=== PATIENT | female | born 1980 | race Caucasian/White ===

== ENCOUNTER 2017-03-29 19:34 | Emergency (ER) | payer MEDICAID, OTHER ==
[~2017-03-29] VITALS: Ht 157.5 cm; Wt 66.0 kg
[~2017-03-29 19:34] MED LIST: PREN-88 PO
[2017-03-29] MEDS ORDERED: SODIUM CHLORIDE 0.9% 1,000 ML IV ONE (20:10)
[2017-03-29] MEDS ORDERED: ONDANSETRON HCL 4MG/2ML VIAL IV STA (20:10)
[2017-03-29 20:36] LABS: HEMATOCRIT. 40.2 % (36.0-48.0); HEMOGLOBIN. 13.4 g/dL (12.0-16.0); MEAN CORPUSCULAR HEMOGLOBIN 28.4 pg (28.0-32.0); MEAN CORPUSCULAR VOLUME 84.9 fL (81.0-99.0); MEAN PLATELET VOLUME 7.8 fl (7.4-10.4); PLATELET 285 x1000/uL (130-400); RED BLOOD CELL COUNT 4.74 mill/uL (4.2-5.4); RED CELL DISTRIBUTION WIDTH 14.1 % (11.6-14.6)
[2017-03-29 20:38] LABS: CHLORIDE 103 mEq/L (98-107)
[2017-03-29 20:39] LABS: PROTHROMBIN TIME 10.8 sec (9.4-11.6)
[2017-03-29 20:42] LABS: CARBON DIOXIDE 26 mEq/L (21-32)
[2017-03-29 20:59] LABS: PLATELET ESTIMATE NORMAL
[2017-03-29 21:09] LABS: CLARITY URINE CLEAR (CLEAR); COLOR URINE YELLOW (YELLOW); GLUCOSE URINE NEGATIVE (NEGATIVE); KETONES URINE TRACE (NEGATIVE); LEUKOCYTE ESTERASE URINE NEGATIVE (NEGATIVE); NITRITE URINE NEGATIVE (NEGATIVE); OCCULT BLOOD URINE NEGATIVE (NEGATIVE); PROTEIN URINE NEGATIVE (NEGATIVE); SPECIFIC GRAVITY URINE 1.029 (1.005-1.030)
[2017-03-29] MEDS ORDERED: MORPHINE SULFATE 4 MG/ML CPJ (NOT FOR IM USE) IV ONE (22:00)
[2017-03-30] MEDS ORDERED: ONDANSETRON HCL 4MG/2ML VIAL IV NR (02:21)
[2017-03-30] MEDS ORDERED: KETOROLAC 30MG/ML VIAL IV NR (02:30)
[2017-03-30 02:51] VITALS: BP 94/56
== END 2017-03-30 03:16 | disposition home or self-care (01) ==
LOC: ER 20:14
DX: K29.00 Acute gastritis without bleeding (principal); N83.291 Other ovarian cyst, right side; R51 Headache; J45.909 Unspecified asthma, uncomplicated
CPT/HCPCS: 36415; 76830; 76856; 76857; 80053; 81003; 81025; 83690; 85025; 85610; 96361; 96374; 96375; 96376; 99285; J1885; J2270; J2405; J7030; Z7610

== ENCOUNTER 2018-12-18 19:30 | Emergency (ER) | payer MEDICAID, OTHER ==
[~2018-12-18] VITALS: Ht 167.6 cm; Wt 68.0 kg
[2018-12-18] MEDS ORDERED: SODIUM CHLORIDE 0.9% 1,000 ML IV ONE (20:09)
[2018-12-18 20:31] LABS: BASOPHILS % 1.2 % (0.0-2.0); EOSINOPHILS % 5.7 % (0.0-5.0); HEMATOCRIT. 40.8 % (36.0-48.0); HEMOGLOBIN. 13.5 g/dL (12.0-16.0); LYMPHOCYTES % 21.9 % (20.0-50.0); MEAN CORPUSCULAR HEMOGLOBIN 28.5 pg (28.0-32.0); MEAN CORPUSCULAR VOLUME 85.7 fL (81.0-99.0); MEAN PLATELET VOLUME 7.7 fl (7.4-10.4); MONOCYTES % 8.4 % (2.0-8.0); NEUTROPHILS % 62.8 % (40.0-76.0); PLATELET 298 x1000/uL (130-400); RED BLOOD CELL COUNT 4.76 mill/uL (4.2-5.4); RED CELL DISTRIBUTION WIDTH 13.4 % (11.6-14.6)
[2018-12-18 20:34] LABS: CHLORIDE 103 mEq/L (98-107)
[2018-12-18 20:53] LABS: HCG SCREEN NEGATIVE
[2018-12-18 22:41] VITALS: BP 116/73
== END 2018-12-18 22:45 | disposition home or self-care (01) ==
LOC: ER 19:30
DX: R07.89 Other chest pain (principal); F41.0 Panic disorder [episodic paroxysmal anxiety]; E78.00 Pure hypercholesterolemia, unspecified; R56.9 Unspecified convulsions
CPT/HCPCS: 36415; 80053; 83690; 84484; 84703; 85025; 93005; 99284; J7030

== ENCOUNTER 2021-08-08 15:39 | Inpatient (IN) | payer MEDICAID ==
[~2021-08-08] VITALS: Ht 165.1 cm; Wt 76.7 kg
[2021-08-08] MEDS ORDERED: ACETAMINOPHEN 500MG TABLET PO ONE (16:15)
[2021-08-08 17:08] LABS: CLARITY URINE CLEAR (CLEAR); COLOR URINE YELLOW (YELLOW); KETONES URINE NEGATIVE (NEGATIVE); LEUKOCYTE ESTERASE URINE NEGATIVE (NEGATIVE); NITRITE URINE NEGATIVE (NEGATIVE); OCCULT BLOOD URINE 1+ (NEGATIVE); PH URINE 7.5 (4.5-8.0); PROTEIN URINE NEGATIVE (NEGATIVE); SPECIFIC GRAVITY URINE 1.007 (1.005-1.030); UROBILINOGEN URINE 0.2 E.U./dL (0.2-1.0)
[2021-08-08] MEDS ORDERED: MORPHINE SULFATE 2 MG/ML CPJ (NOT FOR IM USE) IV ONE (17:15)
[2021-08-08 18:50] LABS: BASOPHILS % 0.9 % (0.0-2.0); EOSINOPHILS % 10.3 % (0.0-5.0); HEMATOCRIT. 38.4 % (36.0-48.0); HEMOGLOBIN. 13.3 g/dL (12.0-16.0); LYMPHOCYTES % 24.4 % (20.0-50.0); MEAN CORPUSCULAR HEMOGLOBIN 27.5 pg (28.0-32.0); MEAN CORPUSCULAR VOLUME 79.4 fL (81.0-99.0); MEAN PLATELET VOLUME 7.4 fl (7.4-10.4); MONOCYTES % 8.2 % (2.0-8.0); NEUTROPHILS % 56.2 % (40.0-76.0); PLATELET 335 x1000/uL (130-400); RED BLOOD CELL COUNT 4.83 mill/uL (4.2-5.4); RED CELL DISTRIBUTION WIDTH 13.2 % (11.6-14.6)
[2021-08-08 18:52] LABS: CHLORIDE 107 mEq/L (98-107)
[2021-08-08 18:56] LABS: ETHANOL BLOOD < 10 mg/dL
[2021-08-08 19:01] LABS: CREATINE KINASE 70 IU/L (26-192)
[2021-08-08] MEDS ORDERED: SODIUM CHLORIDE 0.9% 1,000 ML IV ONE (21:30)
[2021-08-08] MEDS ORDERED: MECLIZINE 25MG TABLET PO ONE (21:30)
[2021-08-08] MEDS ORDERED: KETOROLAC 15MG/ML VIAL IV ONE (21:45)
[2021-08-09] MEDS ORDERED: DOCUSATE SODIUM 100MG CAPSULE PO PRN (01:30)
[2021-08-09] MEDS ORDERED: MAGNESIUM/ALUMINUM HYDROXIDE/SIMETHICONE 30ML UDC PO PRN (01:30)
[2021-08-09] MEDS ORDERED: ACETAMINOPHEN 325MG TABLET PO PRN (01:30)
[2021-08-09] MEDS ORDERED: CLONIDINE 0.1MG TABLET PO PRN (01:30)
[2021-08-09] MEDS ORDERED: ONDANSETRON HCL 4MG/2ML INJ IV PRN (01:30)
[2021-08-09] MEDS ORDERED: NALOXONE HCL 0.4 MG/ML 1ML VIAL IV PRN (01:45)
[2021-08-09] MEDS ORDERED: HYDROCODONE/APAP 7.5/325MG 1 TAB TABLET PO PRN ×2 (02:00→15:00)
[2021-08-09] MEDS: ASPIRIN 81MG EC TABLET PO SCH (09:11)
[2021-08-09 13:30] VITALS: BP 115/71
[2021-08-09] MEDS: HYDROMORPHONE HCL/PF 2MG/ML CPJ IV PRN ×2 (14:04→17:26)
[2021-08-09] MEDS ORDERED: MECLIZINE 25MG TABLET PO PRN (15:30)
[2021-08-09 16:00] VITALS: BP_SYST 107; BP_SYST 125; BP_SYST 126; BP_DIAS 57; BP_DIAS 59
[2021-08-09 20:00] VITALS: BP 111/58
[2021-08-10] VITALS: BP 113/86
[2021-08-10 04:00] VITALS: BP 148/82
[2021-08-10 06:35] LABS: BASOPHILS % 0.7 % (0.0-2.0); EOSINOPHILS % 14.7 % (0.0-5.0); HEMATOCRIT. 40.3 % (36.0-48.0); HEMOGLOBIN. 13.3 g/dL (12.0-16.0); LYMPHOCYTES % 40.9 % (20.0-50.0); MEAN CORPUSCULAR HEMOGLOBIN 26.6 pg (28.0-32.0); MEAN CORPUSCULAR VOLUME 80.5 fL (81.0-99.0); MEAN PLATELET VOLUME 7.5 fl (7.4-10.4); MONOCYTES % 10.5 % (2.0-8.0); NEUTROPHILS % 33.2 % (40.0-76.0); PLATELET 328 x1000/uL (130-400); RED CELL DISTRIBUTION WIDTH 13.4 % (11.6-14.6)
[2021-08-10 06:49] LABS: CHLORIDE 105 mEq/L (98-107)
[2021-08-10 08:00] VITALS: BP_SYST 112; BP_SYST 115; BP_SYST 98; BP_DIAS 50; BP_DIAS 51; BP_DIAS 61
[2021-08-10] MEDS: ASPIRIN 81MG EC TABLET PO SCH (08:30)
[2021-08-10 11:56] VITALS: BP 113/65
[2021-08-10 12:00] VITALS: BP 113/5
== END 2021-08-10 14:30 | disposition home or self-care (01) | DRG 54 ==
LOC: ER 15:39 → MICUSO 22:05 → 7EST 08-09 13:20
PROVIDERS: ADMIT Hospitalist; ATTEND Hospitalist
DX: R51.9 Headache, unspecified (principal); E78.00 Pure hypercholesterolemia, unspecified; I95.1 Orthostatic hypotension; E78.5 Hyperlipidemia, unspecified; Z20.822 Contact with and (suspected) exposure to COVID-19; G40.909 Epilepsy, unspecified, not intractable, without status epilepticus; Z90.49 Acquired absence of other specified parts of digestive tract; R42 Dizziness and giddiness
CPT/HCPCS: 36415; 71045; 80053; 80320; 81003; 82140; 82550; 82962; 84484; 85025; 87426; 93005; 99285; J1170; J1885; J2270; J7030; J8597; G0480